=== PATIENT | female | born 1950 | race Caucasian/White ===

== ENCOUNTER 2016-12-30 08:08 | Emergency (ER) | payer MEDICARE, BC ==
[2016-12-30 08:32] VITALS: BP 140/93
--- NOTE | 2016-12-30 09:04 | EDM.PDOC ---
ED HPI GENERAL MEDICAL PROBLEM - General Chief Complaint: General Stated Complaint: DEHYDRATED? Time Seen by Provider: 12/30/16 08:50 Source of Information: Reports: Patient History Limitations: Reports: No limitations - History of Present Illness INITIAL COMMENTS - FREE TEXT/NARRATIVE: History of present illness: [66-year-old female is anxious about her upcoming hip surgery on January 15. she's having trouble sleeping having anxiety having diarrhea. She's had this problem before before surgeries. This time especially difficult because she lost her 3 years ago and he was a big support to her. She has had no fevers chills cough cold symptoms chest pain shortness of breath abdominal pain nausea or vomiting or dysuria] Review of systems: As per history of present illness and below otherwise all systems reviewed and negative. Past medical history: As per history of present illness and as reviewed below otherwise noncontributory. Surgical history: As per history of present illness and as reviewed below otherwise noncontributory. Social history: No reported history of drug or alcohol abuse. Family history: As per history of present illness and as reviewed below otherwise noncontributory. Physical exam: HEENT: Atraumatic, normocephalic, pupils reactive, negative for conjunctival pallor or scleral icterus, mucous membranes moist, throat clear, neck supple, nontender, trachea midline. Lungs: Clear to auscultation, breath sounds equal bilaterally Heart: S1S2, regular, negative for clicks, rubs, or JVD. Abdomen: Soft, nondistended, nontender. Extremities: Atraumatic, negative for cords or calf pain. Neurovascular unremarkable. Neuro: Awake, alert, oriented. Exam nonfocal. MSE: Alert but anxious with good eye contact well kept and well groomed pleasant and conversant Diagnostics: [] Therapeutics: [] Impression: [Situational anxiety] Plan: [Providing her with Klonopin 0.5 mg 1 by mouth twice a day when necessary anxiety or insomnia #20 with no refills] Definitive disposition and diagnosis as appropriate pending reevaluation and review of above. 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: Musculoskeletal History: Reports: Other (see below) Other Musculoskeletal History: pelvic fracture - Past Surgical History HEENT Surgical History: Reports: Tonsillectomy Cardiovascular Surgical History: Reports: Other (see below) Other Cardiovascular Surgeries/Procedures: open heart surgery for pulmonary stenosis GI Surgical History: Reports: Appendectomy, Cholecystectomy Female Surgical History: Reports: section, Hysterectomy, Oophorectomy Social & Family History - Tobacco Use Smoking Status *Q: Never Smoker Second Hand Smoke Exposure: No - Recreational Drug Use Recreational Drug Use: No ED ROS GENERAL - Review of Systems Review Of Systems: ROS reveals no pertinent complaints other than HPI. ED EXAM, GENERAL - Physical Exam Exam: See Below Course - Vital Signs Last Recorded V/S: Last Vital Signs Temp 36.7 C 12/30/16 08:31 Pulse 76 12/30/16 08:31 Resp 16 12/30/16 08:31 BP 140/93 H 12/30/16 08:31 Pulse Ox 99 12/30/16 08:31 Departure - Departure Time of Disposition: 09:03 Disposition: Home, Self-Care 01 Condition: good Clinical Impression: Situational anxiety Forms: ED Department Discharge Additional Instructions: You are not dehydrated this point it is unlikely that she will become dehydrated. If these medications are helping you please follow up with your doctor if you feel that you need more. Try to spend time with her friends visiting with them talking with them and I think that will help as well.
== END 2016-12-30 09:11 | disposition home or self-care (01) ==
LOC: JP.ED 08:08
DX: F41.8 Other specified anxiety disorders (principal); Z90.49 Acquired absence of other specified parts of digestive tract; Z90.710 Acquired absence of both cervix and uterus; Z90.721 Acquired absence of ovaries, unilateral; Z98.890 Other specified postprocedural states
CPT/HCPCS: 99283

== ENCOUNTER 2017-03-20 07:43 | Emergency (ER) | payer MEDICARE, BC ==
[2017-03-20 07:56] VITALS: BP 135/69
[2017-03-20] MEDS ORDERED: Acetaminophen 325 MG Tab PO ONE (08:15)
--- NOTE | 2017-03-20 08:21 | EDM.PDOC ---
ED HPI GENERAL MEDICAL PROBLEM - General Chief Complaint: Lower Extremity Injury/Pain Stated Complaint: LT LEG PAIN Time Seen by Provider: 03/20/17 08:10 Source of Information: Reports: Patient, RN History Limitations: Reports: No Limitations - History of Present Illness INITIAL COMMENTS - FREE TEXT/NARRATIVE: 66 yo female had a L knee replacement about 9 weeks ago. Developed left calf pain last speedy so comes in today to make sure there is no DVT. Has no respiratory complaints. Was prescribed Eliquis after surgery, but could not afford it. 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: Other (see below) (none) Left Leg Pain Score (Numeric/FACES): 5 - Related Data Allergies Allergy/AdvReac Type Severity Reaction Status Date / Time oxycodone Allergy Other Verified 03/20/17 08:05 Home Meds: Home Meds Acetaminophen/HYDROcodone [[place] 325-5 MG] 1 tab PO ASDIRECTED 03/20/17 [History ] Docusate Sodium [Colace] 1 tab PO ASDIRECTED 03/20/17 [History] Past Medical History Other Cardiovascular History: Pulmonarry stenosis Other Respiratory History: pulmonary stenosis: surgery to open it 1985 Gastrointestinal History: Reports: Cholelithiasis 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 Musculoskeletal Surgical History: Reports: Hip Replacement Social & Family History - Tobacco Use Smoking Status *Q: Never Smoker Second Hand Smoke Exposure: No - Recreational Drug Use Recreational Drug Use: No Review of Systems - Review of Systems Review Of Systems: See Below Constitutional: Reports: No Symptoms Eyes: Reports: No Symptoms Ears: Reports: No Symptoms Nose: Reports: No Symptoms Mouth/Throat: Reports: No Symptoms Respiratory: Reports: No Symptoms Cardiovascular: Reports: No Symptoms Musculoskeletal: Reports: Other (L calf pain) Skin: Reports: No Symptoms Neurological: Reports: No Symptoms ED EXAM, GENERAL - Physical Exam Exam: See Below Exam Limited By: No Limitations General Appearance: Alert, WD/WN, No Apparent Distress Respiratory/Chest: No Respiratory Distress, Lungs Clear, Normal Breath Sounds, No Accessory Muscle Use Cardiovascular: Regular Rate, Rhythm, No Edema Extremities: Normal Inspection, Normal Range of Motion, No Pedal Edema, Normal Capillary Refill, Other (L calf is mildly tender, no increase in warmth or redness or swelling. ) Neurological: Alert, Oriented, CN II-XII Intact, Normal Cognition, No Motor/ Sensory Deficits Psychiatric: Normal Affect, Normal Mood Skin Exam: Warm, Dry, Intact, Normal Color, No Rash Lymphatic: No Adenopathy Course - Vital Signs Text/Narrative:: acetaminophen 650 mg po Last Recorded V/S: Last Vital Signs Temp 35.9 C 03/20/17 08:04 Pulse 82 03/20/17 08:04 Resp 16 03/20/17 08:04 BP 135/69 03/20/17 08:04 Pulse Ox 95 03/20/17 08:04 - Orders/Labs/Meds Labs: Laboratory Tests 03/20/17 Range/Units 08:16 D-Dimer, Quantitative 220 (0.0-400.0) ng/mL Meds: Medications Discontinued Medications Generic Name Dose Route Start Last Admin Trade Name Macarioq PRN Reason Stop Dose Admin Acetaminophen 650 mg 03/20/17 08:15 Tylenol PO 03/20/17 08:16 NOW ONE Departure - Departure Time of Disposition: 09:07 Disposition: Home, Self-Care 01 Condition: good Clinical Impression: Strain of calf muscle Qualifiers: Encounter type: initial encounter Laterality: left Qualified Code(s): S86.812A - Strain of other muscle(s) and tendon(s) at lower leg level, left leg, initial encounter - Discharge Information Forms: ED Department Discharge
== END 2017-03-20 09:14 | disposition home or self-care (01) ==
LOC: JP.ED 07:43
DX: S86.812A Strain of other muscle(s) and tendon(s) at lower leg level, left leg, initial encounter (principal); Z88.5 Allergy status to narcotic agent; Z98.890 Other specified postprocedural states; Z90.49 Acquired absence of other specified parts of digestive tract; Z90.710 Acquired absence of both cervix and uterus; Z96.652 Presence of left artificial knee joint; X58.XXXA Exposure to other specified factors, initial encounter
CPT/HCPCS: 36415; 85379; 99284; A9270; 99282

== ENCOUNTER 2017-10-30 07:37 | Emergency (ER) | payer MEDICARE, BC ==
[2017-10-30 07:55] VITALS: BP 134/66
[2017-10-30] MEDS ORDERED: Ketorolac 60 MG/2 ML SDV IM ONE (08:23)
--- NOTE | 2017-10-30 08:25 | EDM.PDOC ---
ED HPI GENERAL MEDICAL PROBLEM - General Chief Complaint: General Stated Complaint: HURT LT SIDE/RIBS Time Seen by Provider: 10/30/17 08:20 Source of Information: Reports: Patient, RN Notes Reviewed History Limitations: Reports: No Limitations - History of Present Illness INITIAL COMMENTS - FREE TEXT/NARRATIVE: 67-year-old female presents emergency department today with left chest wall pain , she states she injured herself when she was bending over into deep freeze her to pop on the left side all of a sudden sudden onset of pain hurts to take a deep breath does have a history of rib fracture on that side Left Chest Pain Score (Numeric/FACES): 7 - Related Data Allergies Allergy/AdvReac Type Severity Reaction Status Date / Time oxycodone Allergy Other Verified 10/30/17 07:57 Home Meds: Home Meds NK [No Known Home Meds] 10/30/17 [History] Past Medical History Other Cardiovascular History: Pulmonarry stenosis Other Respiratory History: pulmonary stenosis: surgery to open it 1985 Gastrointestinal History: Reports: Cholelithiasis 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 Musculoskeletal Surgical History: Reports: Hip Replacement Social & Family History - Tobacco Use Smoking Status *Q: Never Smoker Second Hand Smoke Exposure: No - Recreational Drug Use Recreational Drug Use: No ED ROS GENERAL - Review of Systems Review Of Systems: See Below Constitutional: Reports: No Symptoms HEENT: Reports: No Symptoms Respiratory: Reports: Shortness of Breath. Denies: Cough, Sputum Cardiovascular: Reports: Chest Pain. Denies: Dyspnea on Exertion GI/Abdominal: Reports: No Symptoms : Reports: No Symptoms ED EXAM, GENERAL - Physical Exam Exam: See Below Exam Limited By: No Limitations General Appearance: Alert, WD/WN, No Apparent Distress Throat/Mouth: No Airway Compromise Neck: Normal Inspection, Supple, Non-Tender, Full Range of Motion Respiratory/Chest: No Respiratory Distress, Lungs Clear, Normal Breath Sounds, No Accessory Muscle Use, Other (Tender to palpation along the left side of the chest) Cardiovascular: Regular Rate, Rhythm, No Murmur Course - Vital Signs Last Recorded V/S: Last Vital Signs Temp 96.6 F 10/30/17 07:56 Pulse 65 10/30/17 07:56 Resp 16 10/30/17 07:56 BP 134/66 10/30/17 07:56 Pulse Ox 93 L 10/30/17 07:56 - Orders/Labs/Meds Meds: Medications Discontinued Medications Generic Name Dose Route Start Last Admin Trade Name Torsten PRN Reason Stop Dose Admin Ketorolac Tromethamine 60 mg 10/30/17 08:23 10/30/17 08:33 Toradol IM 10/30/17 08:24 60 mg ONETIME ONE Administration Departure - Departure Time of Disposition: 09:16 Disposition: Home, Self-Care 01 Condition: Good Clinical Impression: Chest wall pain - Discharge Information Referrals: Matthew Vegas Sr, MD [Primary Care Provider] - Forms: ED Department Discharge Additional Instructions: Use ibuprofen for baseline pain control, use hydrocodone for breakthrough pain, Please followup with your primary care provider in 5-7 days if not better, please call return to the emergency department with worsening of symptoms. - Assessment/Plan Plan: Assessment Acuity = acute Site and laterality = left-sided chest wall pain complicated in a patient with known history of median sternotomy Etiology = secondary to bending over Manifestations = none Location of injury = Home Lab values = chest x-ray shows no acute process Plan She did receive good relief from the Toradol injection, plan to discharge home with ibuprofen for baseline pain control and hydrocodone 5/325 one tablet by mouth 3 times a day when necessary total #10 she'll follow-up with her primary care in 5-7 days if no improvement This note was dictated using [employer] voice recognition software please call with any questions on syntax or anai.
--- NOTE | 2017-10-30 08:51 | CR ---
Chest 2V HISTORY: left chest wall pain COMPARISON: None FINDINGS: Lungs appear clear and normally aerated. Cardiomediastinal silhouette is within normal limits. Old me debi sternotomy changes are noted. There is mild atherosclerotic calcification in the aortic arch. No vascular redistribution or pleural fluid can be seen. Bony structures and soft tissues are unremarka ble. IMPRESSION: Old median sternotomy changes. No acute cardiopulmonary disease is identified.
== END 2017-10-30 09:42 | disposition home or self-care (01) ==
LOC: JP.ED 07:37
DX: R07.89 Other chest pain (principal); Z98.890 Other specified postprocedural states; Z88.6 Allergy status to analgesic agent; X50.1XXA Overexertion from prolonged static or awkward postures, initial encounter
CPT/HCPCS: 71046; 96372; 99284; J1885; 99283

== ENCOUNTER 2019-01-04 08:39 | Emergency (ER) | payer MEDICARE, BC ==
[2019-01-04 08:54] VITALS: BP 127/77
--- NOTE | 2019-01-04 09:26 | EDM.PDOC ---
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 - Related Data Allergies Allergy/AdvReac Type Severity Reaction Status Date / Time oxycodone Allergy Other Verified 01/04/19 08:55 Home Meds: Home Meds Alendronate Sodium 1 tab PO WEEKLY 01/04/19 [History] Calcium Carb/Vitamin D3/Vit K1 [Viactiv Soft Chew Tablet] 2 tab PO DAILY [History] Hydrocortisone [Hydrocortisone 2.5% Crm] 30 gm .XX ASDIRECTED #1 tube 01/04/19 [ Rx] Multivitamin [Multivitamins] 1 tab PO DAILY 01/04/19 [History] predniSONE 40 mg PO DAILY #6 tab 01/04/19 [Rx] predniSONE [Prednisone] 40 mg PO DAILY 3 Days tablet 01/04/19 [Rx] Past Medical History Other Cardiovascular History: Pulmonarry stenosis Other Respiratory History: pulmonary stenosis: surgery to open it 1985 Gastrointestinal History: Reports: Cholelithiasis 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 Musculoskeletal Surgical History: Reports: Hip Replacement Social & Family History - Tobacco Use Smoking Status *Q: Never Smoker - Alcohol Use Days Per Week of Alcohol Use: 7 Number of Drinks Per Day: 1 Total Drinks Per Week: 7 - Recreational Drug Use Recreational Drug Use: No ED ROS GENERAL - Review of Systems Review Of Systems: ROS reveals no pertinent complaints other than HPI. Constitutional: Reports: No Symptoms Musculoskeletal: Reports: Arm Pain (left arm swelling ) Skin: Reports: No Symptoms Neurological: Reports: No Symptoms Psychiatric: Reports: No Symptoms Hematologic/Lymphatic: Reports: No Symptoms Immunologic: Reports: No Symptoms ED EXAM, SKIN/RASH Exam: See Below Exam Limited By: No Limitations General Appearance: Alert, WD/WN, No Apparent Distress Peripheral Pulses: 2+: Radial (L), Radial (R) Back Exam: Full Range of Motion Extremities: Normal Inspection, Normal Capillary Refill, Arm Pain (left upper arm erythema and swelling, 8 x 10 area, warm to the touch) Course - Vital Signs Last Recorded V/S: Last Vital Signs Temp 36.2 C 01/04/19 08:54 Pulse 90 01/04/19 08:54 Resp 14 01/04/19 08:54 BP 127/77 01/04/19 08:54 Pulse Ox 96 01/04/19 08:54 Departure - Departure Disposition: Home, Self-Care 01 Clinical Impression: Drug reaction Qualifiers: Encounter type: initial encounter Qualified Code(s): T50.905A - Adverse effect of unspecified drugs, medicaments and biological substances, initial encounter - Discharge Information Prescriptions: Hydrocortisone [Hydrocortisone 2.5% Crm] 30 gm .XX ASDIRECTED #1 tube predniSONE 40 mg PO DAILY #6 tab predniSONE [Prednisone] 40 mg PO DAILY 3 Days tablet Instructions: Drug Allergy, [id number] Referrals: Ronald Klein MD [Primary Care Provider] - Forms: ED Department Discharge Additional Instructions: Please take benadryl and use hydrocortisone cream on the area for itching. If the area continues to get worse throughout the day today please fill the script for prednisone. Return to the ER for new symptoms such as shortness of breath or abdominal pain as these may indicate a worsening allergic reaction <Osvaldo Urias - Last Filed: 01/05/19 07:44> Course - Re-Assessments/Exams Free Text/Narrative Re-Assessment/Exam: 68 yo presents with localized reaction after pneumonia immunization No systemic symptoms Prescribed local hydrocortisone cream and benadryl Provided script for short course of PO prednisone should her symptoms fail to improve by this evening Will f/u with PCP Remainder per above note by student LIZA Phillips which reflects my exam 01/05/19 07:42 Departure - Departure Time of Disposition: 10:13 - Discharge Information *PRESCRIPTION DRUG MONITORING PROGRAM REVIEWED*: No *COPY OF PRESCRIPTION DRUG MONITORING REPORT IN PATIENT HUGO: No
== END 2019-01-04 10:52 | disposition home or self-care (01) ==
LOC: JP.ED 08:39
DX: R22.9 Localized swelling, mass and lump, unspecified (principal); T50.Z95A Adverse effect of other vaccines and biological substances, initial encounter; Z79.899 Other long term (current) drug therapy; Z88.6 Allergy status to analgesic agent
CPT/HCPCS: 99282

== ENCOUNTER 2019-06-07 20:52 | Emergency (ER) | payer MEDICARE, BC ==
[2019-06-07 21:06] VITALS: BP 124/65
--- NOTE | 2019-06-07 21:26 | EDM.PDOC ---
ED HPI GENERAL MEDICAL PROBLEM - General Chief Complaint: Abdominal Pain Stated Complaint: ADM PAIN Time Seen by Provider: 06/07/19 21:15 Source of Information: Reports: Patient, Old Records, RN History Limitations: Reports: No Limitations - History of Present Illness INITIAL COMMENTS - FREE TEXT/NARRATIVE: 68 yo female presents with intermittent severe crampy abdominal pain. Had nausea with the pain, but did not vomit. No fever. Has had several surgeries in the past. No blood in stools. Onset: Today Onset Date: 06/07/19 Duration: Hour(s):, Waxing/Waning Location: Reports: Abdomen Quality: Reports: Sharp Severity: Severe Improves with: Reports: None Worsens with: Reports: None Context: Reports: Other (see HPI) Associated Symptoms: Reports: Nausea/Vomiting (no vomiting). Denies: Fever/ Chills Treatments SPECIAL SERVICES COORDINATOR: Reports: Other (see below) (none) periumbilical pain Pain Score (Numeric/FACES): 10 - Related Data Allergies Allergy/AdvReac Type Severity Reaction Status Date / Time oxycodone Allergy Other Verified 06/07/19 20:58 Home Meds: Home Meds Alendronate Sodium 1 tab PO WEEKLY 01/04/19 [History] Calcium Carb/Vitamin D3/Vit K1 [Viactiv Soft Chew Tablet] 2 tab PO DAILY [History] Multivitamin [Multivitamins] 1 tab PO DAILY 01/04/19 [History] Past Medical History Cardiovascular History: Reports: Heart Murmur Other Cardiovascular History: Pulmonary stenosis Other Respiratory History: pulmonary stenosis: surgery to open it 1985 Gastrointestinal History: Reports: Cholelithiasis 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 Musculoskeletal Surgical History: Reports: Hip Replacement Social & Family History - Tobacco Use Smoking Status *Q: Never Smoker - Caffeine Use Caffeine Use: Reports: Soda - Recreational Drug Use Recreational Drug Use: No ED ROS GENERAL - Review of Systems Review Of Systems: See Below Constitutional: Reports: No Symptoms HEENT: Reports: No Symptoms Respiratory: Reports: No Symptoms Cardiovascular: Reports: No Symptoms Endocrine: Reports: No Symptoms GI/Abdominal: Reports: Abdominal Pain, Diarrhea (past a small amt of liquid stool today.), Nausea. Denies: Black Stool, Bloody Stool, Constipation, Distension, Flatus, Hematemesis, Melena, Vomiting : Reports: No Symptoms Musculoskeletal: Reports: No Symptoms Skin: Reports: No Symptoms Neurological: Reports: No Symptoms Psychiatric: Reports: No Symptoms ED EXAM, GI/ABD - Physical Exam Exam: See Below Exam Limited By: No Limitations General Appearance: Alert, WD/WN, No Apparent Distress Eyes: Bilateral: Normal Appearance Ears: Normal External Exam, Normal Canal, Hearing Grossly Normal Nose: Normal Inspection, No Blood Throat/Mouth: Normal Inspection, Normal Lips, Normal Oropharynx, Normal Voice, No Airway Compromise. No: Normal Teeth (no upper or maxillary teeth present) Head: Atraumatic, Normocephalic Neck: Normal Inspection Respiratory/Chest: No Respiratory Distress, Lungs Clear, Normal Breath Sounds, No Accessory Muscle Use Cardiovascular: Regular Rate, Rhythm, No Edema GI/Abdominal Exam: Normal Bowel Sounds, No Distention, Guarding, Tender ( especially lower half of abdomen.). No: Non-Tender, Distended Back Exam: Normal Inspection. No: CVA Tenderness (R), CVA Tenderness (L) Extremities: Normal Inspection, Normal Range of Motion, Non-Tender, No Pedal Edema Neurological: Alert, Oriented, CN II-XII Intact, Normal Cognition, No Motor/ Sensory Deficits Psychiatric: Normal Affect, Normal Mood Skin Exam: Warm, Dry, Intact, Normal Color, No Rash Course - Vital Signs Text/Narrative:: Symptoms all passed while in the ER. OK with going home. Tolerated 2 cups of apple juice. Last Recorded V/S: Last Vital Signs Temp 35.8 C 06/07/19 20:56 Pulse 78 06/07/19 21:06 Resp 15 06/07/19 21:06 BP 124/65 06/07/19 21:06 Pulse Ox 97 06/07/19 21:06 - Orders/Labs/Meds Orders: Active Orders 24 hr Category Date Time Status Lactated Ringers [Ringers, Lactated] 1,000 ml Med 06/07/19 22:00 Active IV ASDIRECTED Medication Orders Lactated Ringer's (Ringers, Lactated) 1,000 mls @ 125 mls/hr IV ASDIRECTED MIKAELA Last Admin: 06/07/19 22:01 Dose: 125 mls/hr Labs: Laboratory Tests 06/07/19 06/07/19 06/07/19 Range/Units 22:01 22:01 22:19 WBC 9.8 (4.5-11.0) K/uL RBC 5.18 (3.30-5.50) M/uL Hgb 15.1 H (12.0-15.0) g/dL Hct 46.1 (36.0-48.0) % MCV 89 (80-98) fL MCH 29 (27-31) pg MCHC 33 (32-36) % Plt Count 264 (150-400) K/uL Sodium 140 (140-148) mmol/L Potassium 4.3 (3.6-5.2) mmol/L Chloride 104 (100-108) mmol/L Carbon Dioxide 30 (21-32) mmol/L Anion Gap 6.4 (5.0-14.0) mmol/L BUN 20 H (7-18) mg/dL Creatinine 1.1 H (0.6-1.0) mg/dL Est Cr Clr Drug Dosing 34.67 mL/min Estimated GFR (MDRD) 49 L (>60) Glucose 107 H (74-106) mg/dL Calcium 9.5 (8.5-10.1) mg/dL C-Reactive Protein 0.00 (0.0-0.3) mg/dL Urine Color (YELLOW) Urine Appearance (CLEAR) Urine pH (5.0-8.0) Ur Specific [place] (1.008-1.030) Urine Protein (NEGATIVE) mg/dL Urine Glucose (UA) (NEGATIVE) mg/dL Urine Ketones (NEGATIVE) mg/dL Urine Occult Blood (NEGATIVE) Urine Nitrite (NEGATIVE) Urine Bilirubin (NEGATIVE) Urine Urobilinogen (0.2-1.0) EU/dL Ur Leukocyte Esterase (NEGATIVE) Urine RBC (0-5) Urine WBC (0-5) Ur Epithelial Cells Amorphous Sediment Urine Bacteria Urine Mucus 06/07/19 Range/Units 23:30 WBC (4.5-11.0) K/uL RBC (3.30-5.50) M/uL Hgb (12.0-15.0) g/dL Hct (36.0-48.0) % MCV (80-98) fL MCH (27-31) pg MCHC (32-36) % Plt Count (150-400) K/uL Sodium (140-148) mmol/L Potassium (3.6-5.2) mmol/L Chloride (100-108) mmol/L Carbon Dioxide (21-32) mmol/L Anion Gap (5.0-14.0) mmol/L BUN (7-18) mg/dL Creatinine (0.6-1.0) mg/dL Est Cr Clr Drug Dosing mL/min Estimated GFR (MDRD) (>60) Glucose (74-106) mg/dL Calcium (8.5-10.1) mg/dL C-Reactive Protein (0.0-0.3) mg/dL Urine Color Yellow (YELLOW) Urine Appearance Clear (CLEAR) Urine pH 5.5 (5.0-8.0) Ur Specific [place] 1.015 (1.008-1.030) Urine Protein Negative (NEGATIVE) mg/dL Urine Glucose (UA) Normal (NEGATIVE) mg/dL Urine Ketones Negative (NEGATIVE) mg/dL Urine Occult Blood Negative (NEGATIVE) Urine Nitrite Negative (NEGATIVE) Urine Bilirubin Negative (NEGATIVE) Urine Urobilinogen Normal (0.2-1.0) EU/dL Ur Leukocyte Esterase Negative (NEGATIVE) Urine RBC 0-5 (0-5) Urine WBC 0-5 (0-5) Ur Epithelial Cells Not seen Amorphous Sediment Not seen Urine Bacteria Rare Urine Mucus Not seen Meds: Medications Generic Name Dose Route Start Last Admin Trade Name Freq PRN Reason Stop Dose Admin Lactated Ringer's 1,000 mls @ 125 mls/hr 06/07/19 22:00 06/07/19 22:01 Ringers, Lactated IV 125 mls/hr ASDIRECTED MIKAELA Administration Discontinued Medications Generic Name Dose Route Start Last Admin Trade Name Freq PRN Reason Stop Dose Admin Dicyclomine HCl 20 mg 06/07/19 22:20 06/07/19 22:33 Bentyl PO 06/07/19 22:21 20 mg ONETIME ONE Administration Hydromorphone HCl 0.5 mg 06/07/19 21:48 06/07/19 22:01 Dilaudid IVPUSH 06/07/19 21:49 0.5 mg ONETIME ONE Administration - Radiology Interpretation Free Text/Narrative:: KUB X-ray-neg Departure - Departure Time of Disposition: 00:33 Disposition: Home, Self-Care 01 Condition: Good Clinical Impression: Abdominal pain Qualifiers: Abdominal location: generalized Qualified Code(s): R10.84 - Generalized abdominal pain - Discharge Information *PRESCRIPTION DRUG MONITORING PROGRAM REVIEWED*: No *COPY OF PRESCRIPTION DRUG MONITORING REPORT IN PATIENT HUGO: No Referrals: PCP,None [Primary Care Provider] - Forms: ED Department Discharge Additional Instructions: Clear liquids only tonight. Advance diet tomorrow as tolerated. F/U with your doctor. Return as needed. - My Orders Last 24 Hours: My Active Orders 06/07/19 22:00 Lactated Ringers [Ringers, Lactated] 1,000 ml IV ASDIRECTED - Assessment/Plan Last 24 Hours: My Active Orders 06/07/19 22:00 Lactated Ringers [Ringers, Lactated] 1,000 ml IV ASDIRECTED
[2019-06-07] MEDS ORDERED: HYDROmorphone 0.5 MG/0.5 ML Syringe IVPUSH ONE (21:48)
[2019-06-07] MEDS ORDERED: Lactated Ringers 1,000 ML IV SCH (22:00)
--- NOTE | 2019-06-07 22:17 | CRLCR ---
INDICATION: Intermittent severe abdomen pain TECHNIQUE: Abdominal radiograph 2 views COMPARISON: None FINDINGS: Bowel: The bowel gas pattern is normal without evidence of bowel obstruction. Several calcified phleboliths present in the left hemipelvis. Soft tissue: No evidence of pneumoperitoneum present. Bone: A left bipolar hip prosthesis is partially visualized. Severe diffuse osteopenia seen. IMPRESSION: 1. Unremarkable appearance of the visualized abdomen. Dictated by Dread Colon MD @ 06/07/2019 10:15:43 PM Dictated by: Dread Colon MD @ 06/07/2019 22:15:49 (Electronically Signed)
[2019-06-07] MEDS ORDERED: Dicyclomine 10 MG Cap PO ONE (22:20)
== END 2019-06-08 00:54 | disposition home or self-care (01) ==
LOC: JP.ED 20:52
DX: R10.84 Generalized abdominal pain (principal); R10.33 Periumbilical pain; Z90.49 Acquired absence of other specified parts of digestive tract; Z98.890 Other specified postprocedural states; Z88.6 Allergy status to analgesic agent
CPT/HCPCS: 36415; 74018; 80048; 81001; 85027; 86140; 96361; 96374; 99284; A9270; J1170; J7120

== ENCOUNTER 2020-07-05 17:05 | Inpatient (IN) | payer MEDICARE, BC ==
[2020-07-05] MEDS ORDERED: Sodium Chloride 0.9% 10 ML Syringe FLUSH PRN (17:18)
[2020-07-05] MEDS ORDERED: HYDROmorphone 0.5 MG/0.5 ML Syringe IVPUSH ONE ×2 (17:19→19:30)
[2020-07-05] MEDS ORDERED: Metoclopramide 10 MG/2 ML SDV IVPUSH ONE (17:19)
--- NOTE | 2020-07-05 17:26 | EDM.PDOC ---
ED HPI GENERAL MEDICAL PROBLEM - General Chief Complaint: Lower Extremity Injury/Pain Stated Complaint: MEDICAL VIA NORTH Time Seen by Provider: 07/05/20 17:19 Source of Information: Reports: Patient - History of Present Illness INITIAL COMMENTS - FREE TEXT/NARRATIVE: Julianne is a 69 year old female whom presents to ER for acute right hip pain which started abruptly this am. Julianne had a right hip replacement surgery last week and has been doing fairly well. Julianne has been following her therapy plan to a T and very frustrated that she woke up with pain this am. Julianne report hip was fine when going to sleep last night. Julianne called her Orthopedic surgeon whom recommended ER evaluation due to known osteoporosis. Julianne has noticed swelling in her right leg which is better with activity but more swelling today. Julianne is prescribed Fombell for pain took one tablet 1 hr which did not help with pain. Julianne denies shortness of breath, headache, chest pain, cough, fever or URI symptoms concerning for COVID, PE or MA. 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: Musculoskeletal History: Reports: Fracture, Osteoporosis Other Musculoskeletal History: pelvic fracture - Infectious Disease History Infectious Disease History: Reports: Chicken Pox - Past Surgical History HEENT Surgical History: Reports: Tonsillectomy Cardiovascular Surgical History: Reports: Other (See Below) Other Cardiovascular Surgeries/Procedures: pulmonary stenosis surgery GI Surgical History: Reports: Appendectomy, Cholecystectomy Female Surgical History: Reports: Section, Hysterectomy, Oophorectomy, Other (See Below) Other Female Surgeries/Procedures: large cyst removal from ovary 1968. Musculoskeletal Surgical History: Reports: Hip Replacement Social & Family History - Tobacco Use Smoking Status *Q: Never Smoker - Caffeine Use Caffeine Use: Reports: Soda - Recreational Drug Use Recreational Drug Use: No Review of Systems - Review of Systems Review Of Systems: Comprehensive ROS is negative, except as noted in HPI. ED EXAM, GENERAL - Physical Exam Exam: See Below Exam Limited By: No Limitations General Appearance: Alert, WD/WN, Moderate Distress (with movement of right leg. ) Eye Exam: Bilateral Eye: EOMI, Normal Inspection Ears: Normal External Exam, Hearing Grossly Normal Nose: Normal Inspection Throat/Mouth: Normal Inspection, Normal Voice, No Airway Compromise Neck: Normal Inspection, Supple, Non-Tender Respiratory/Chest: No Respiratory Distress, Lungs Clear, Normal Breath Sounds Cardiovascular: Normal Peripheral Pulses, Regular Rate, Rhythm GI/Abdominal: Normal Bowel Sounds, Soft Extremities: Pedal Edema, Leg Pain (upper thigh to palpation. Incision dressing intact right lateral hip. No erythema or swelling noted. Julianne is unable to elevated and move leg like she was able to yesterday. ) Neurological: Alert, Oriented, CN II-XII Intact, Normal Cognition, Normal Gait, No Motor/Sensory Deficits Psychiatric: Normal Affect, Normal Mood Skin Exam: Warm, Dry, Intact, Normal Color, No Rash Course - Vital Signs Last Recorded V/S: Last Vital Signs Temp Pulse 95 07/05/20 19:36 Resp 16 07/05/20 19:36 BP 138/65 07/05/20 19:36 Pulse Ox 94 L 07/05/20 19:36 - Orders/Labs/Meds Orders: Active Orders 24 hr Category Date Time Status Insert Velasquez Catheter [Insert Urinary Catheter] [OM.PC] Care 07/05/20 20:00 Ordered Q24H Peripheral IV Care [RC] . DIRECTED Care 07/05/20 17:18 Active Urinary Catheter Assessment [RC] ASDIRECTED Care 07/05/20 19:57 Active Hip Min 2V or 3V w Pelvis Rt [CR] Stat Exams 07/05/20 17:17 Taken VL Duplex Lwr Ext Veins Ltd Rt [US] Stat Exams 07/05/20 17:26 Taken Sodium Chloride 0.9% [Saline Flush] Med 07/05/20 17:18 Active 10 ml FLUSH ASDIRECTED PRN Peripheral IV Insertion Adult [OM.PC] Urgent Oth 07/05/20 17:18 Ordered Medication Orders Sodium Chloride (Saline Flush) 10 ml FLUSH ASDIRECTED PRN PRN Reason: Keep Vein Open Last Admin: 07/05/20 17:51 Dose: 10 ml Documented by: CARIE Labs: Laboratory Tests 07/05/20 07/05/20 Range/Units 17:18 17:18 WBC 6.7 (4.5-11.0) K/uL RBC 4.08 (3.30-5.50) M/uL Hgb 11.5 L D (12.0-15.0) g/dL Hct 36.4 (36.0-48.0) % MCV 89 (80-98) fL MCH 28 (27-31) pg MCHC 32 (32-36) % Plt Count 254 (150-400) K/uL Neut % (Auto) 65 (36-66) % Lymph % (Auto) 19 L (24-44) % Ashley % (Auto) 14 H (2-6) % Eos % (Auto) 2 (2-4) % Baso % (Auto) 0 (0-1) % Sodium 140 (140-148) mmol/L Potassium 3.7 (3.6-5.2) mmol/L Chloride 103 (100-108) mmol/L Carbon Dioxide 26 (21-32) mmol/L Anion Gap 10.7 (5.0-14.0) mmol/L BUN 12 (7-18) mg/dL Creatinine 0.9 (0.6-1.0) mg/dL Est Cr Clr Drug Dosing 41.78 mL/min Estimated GFR (MDRD) > 60 (>60) Glucose 92 (74-106) mg/dL Calcium 9.2 (8.5-10.1) mg/dL C-Reactive Protein 4.12 H (0.0-0.3) mg/dL Meds: Medications Generic Name Dose Route Start Last Admin Trade Name Freq PRN Reason Stop Dose Admin Sodium Chloride 10 ml 07/05/20 17:18 07/05/20 17:51 Saline Flush FLUSH 10 ml ASDIRECTED PRN Administration Keep Vein Open Discontinued Medications Generic Name Dose Route Start Last Admin Trade Name Freq PRN Reason Stop Dose Admin Hydrocodone Bitart/Acetaminophen 1 tab 07/05/20 18:46 07/05/20 18:56 Fombell 325-10 Mg PO 07/05/20 18:47 1 tab ONETIME ONE Administration Hydromorphone HCl 0.5 mg 07/05/20 17:19 07/05/20 17:51 Dilaudid IVPUSH 07/05/20 17:20 0.5 mg ONETIME ONE Administration Hydromorphone HCl 0.5 mg 07/05/20 19:30 07/05/20 19:40 Dilaudid IVPUSH 07/05/20 19:31 0.5 mg ONETIME ONE Administration Hydroxyzine HCl 25 mg 07/05/20 18:47 07/05/20 18:56 Atarax PO 07/05/20 18:48 25 mg ONETIME ONE Administration Methocarbamol 500 mg 07/05/20 18:46 07/05/20 18:56 Robaxin PO 07/05/20 18:47 500 mg ONETIME ONE Administration Metoclopramide HCl 5 mg 07/05/20 17:19 07/05/20 17:50 Reglan IVPUSH 07/05/20 17:20 5 mg ONETIME ONE Administration - Re-Assessments/Exams Free Text/Narrative Re-Assessment/Exam: Reassessment: No improvement with pain after given Dilaudid 0.5mg. Discussed X- ray appears normal and US no signs of DVT noted. Acute pain is likely due to hematoma in the surgical area. Pre-operative Hgb was 15.5 and today 11. Julianne will be given Fombell 325/10mg, Robaxin 500mg (methocarbamol) and Vistaril 25mg to control pain. If unable to get pain managed will need to discuss admission for pain control either here or transfer to [facility] Ortho group. 07/05/20 18:55 Reassessment: No improvement of pain. Repeat VS obtained before re-dosing of Dilaudid. Discuss discharge planning with patient. She lives home alone and not comfortable going home tonight. Contacted electronics utility worker [facility] Orthopedist about admission for pain management after talking with [facility] Hospitalist. scallop raker Orthopedist would prefer transfer to [facility], Orthopedic service due to post operative complication concerns. Surgeon: Osvaldo Monzon 07/05/20 19:33 19:44-19:51pm: On Hold requested consult with Orthopedic service. scallop raker Surgeon Dr. Knight, in OR at this time. Spoke to Dr Gonzales regarding unable to transfer patient to [facility] due to bed capacity unless (Stroke or Trauma). Dr Gonzales updated about Dr Knight Surgeon electronics utility worker but unable to get operative report due to currently in OR. Admit orders will be completed by Dr Gonzales for [facility] with evaluation in am. Pain is a bit improved with second dose of Dilaudid but unable to urinate (which is a known side effect of Oxycodone for patient). Velasquez catheter order for placement due to inability to void and pain with urinary retention. 07/05/20 19:57 Velasquez catheter placed due to urinary retention, Julianne reports pain in management after second dose of Dilaudid. She would like something to eat. She is grateful to stay in the hospital tonight to get pain managed due to friends unable to help her at home. 07/05/20 20:13 Departure - Departure Time of Disposition: 20:14 Disposition: Admitted As Inpatient 65 Clinical Impression: Right hip pain, Status post hip replacement - Discharge Information Referrals: PCP,None [Primary Care Provider] - Forms: ED Department Discharge Sepsis Event Note (ED) - Evaluation Sepsis Screening Result: No Definite Risk - Focused Exam Vital Signs: Vital Signs Pulse Resp BP Pulse Ox 07/05/20 19:36 95 16 138/65 94 L 07/05/20 17:13 91 16 147/83 H 96 - My Orders Last 24 Hours: My Active Orders 07/05/20 17:17 Hip Min 2V or 3V w Pelvis Rt [CR] Stat 07/05/20 17:18 Peripheral IV Care [RC] . DIRECTED Sodium Chloride 0.9% [Saline Flush] 10 ml FLUSH ASDIRECTED PRN Peripheral IV Insertion Adult [OM.PC] Urgent 07/05/20 17:26 VL Duplex Lwr Ext Veins Ltd Rt [US] Stat 07/05/20 19:57 Urinary Catheter Assessment [RC] ASDIRECTED 07/05/20 20:00 Insert Velasquez Catheter [Insert Urinary Catheter] [OM.PC] Q24H - Assessment/Plan Last 24 Hours: My Active Orders 07/05/20 17:17 Hip Min 2V or 3V w Pelvis Rt [CR] Stat 07/05/20 17:18 Peripheral IV Care [RC] . DIRECTED Sodium Chloride 0.9% [Saline Flush] 10 ml FLUSH ASDIRECTED PRN Peripheral IV Insertion Adult [OM.PC] Urgent 07/05/20 17:26 VL Duplex Lwr Ext Veins Ltd Rt [US] Stat 07/05/20 19:57 Urinary Catheter Assessment [RC] ASDIRECTED 07/05/20 20:00 Insert Velasquez Catheter [Insert Urinary Catheter] [OM.PC] Q24H
[2020-07-05] MEDS ORDERED: Methocarbamol 500 MG Tab PO ONE (18:46)
[2020-07-05] MEDS ORDERED: Acetaminophen/HYDROcodone 325-10 MG Tab PO ONE (18:46)
[2020-07-05] MEDS ORDERED: hydrOXYzine HCl 25 MG Tab PO ONE (18:47)
[2020-07-05] MEDS ORDERED: Magnesium Hydroxide 400 MG/5 ML Susp 30 ML Cup PO PRN (20:11)
[2020-07-05] MEDS ORDERED: Sodium Chloride 0.9% 1,000 ML IV SCH (20:15)
[2020-07-05] MEDS ORDERED: oxyCODONE 5 MG Tab PO PRN (20:21)
[2020-07-05] MEDS: HYDROmorphone 0.5 MG/0.5 ML Syringe IVPUSH PRN (22:46)
[2020-07-06] MEDS: HYDROmorphone 0.5 MG/0.5 ML Syringe IVPUSH PRN ×6 (02:50→18:30)
[2020-07-06] MEDS ORDERED: Docusate Sodium 100 MG Cap PO SCH (09:00)
--- NOTE | 2020-07-06 09:16 | US ---
VL Duplex Lwr Ext Veins Ltd Rt INDICATION: swelling and pain right leg S/P hip surg FINDINGS: Ultrasound examination of the lower extremity using Doppler and compressive technique demonstrates that the common femoral, femoral, and popliteal veins are patent, and negative for thrombus. The calf veins were segmentally visualized and are negative where seen. IMPRESSION: Negative for right lower extremity deep venous thrombosis.
--- NOTE | 2020-07-06 09:19 | CR ---
Hip Min 2V or 3V w Pelvis Rt CLINICAL HISTORY: Hip replacement FINDINGS: Patient is status post bilateral total hip arthroplasties. There are anahi over the right hip region. There is a fixation wire in the trochanteric region. Components appear well seated IMPRESSION: No right hip arthroplasty appears intact Previous left hip arthroplasty
--- NOTE | 2020-07-06 12:06 | PCM.DCSUM1 ---
Discharge Summary - Hospital Course Free Text/Narrative:: 69 year old white female with history of right total hip arthroplasty at [facility] a little over a week ago. Was discharged to home and was doing well until yesterday morning. Awoke with severe pain yesterday morning. No new trauma or fall. Has significant difficulty with weight bearing that did not get better throughout the day. Presented to the ED with inability to weight bear. admitted through the ED for pain control. 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 SNOMED Code(s): 865351267 ICD Code: M97.8XXA - PERIPROSTH FRACTURE AROUND OTHER INTERNAL PROSTH JOINT, INIT; Z96.649 - PRESENCE OF UNSPECIFIED ARTIFICIAL HIP JOINT Status: Acute Current Visit: Yes Qualifiers: Encounter type: initial encounter Laterality: right Qualified Code(s): M97.01XA - Periprosthetic fracture around internal prosthetic right hip joint, initial encounter; T84.040A - Periprosthetic fracture around internal prosthetic right hip joint, initial encounter - Patient Summary/Data Consults: Consultations 07/05/20 20:12 Consult to Case Management/Hand [employer]er [employer]oes [CONS] Routine Comment: Physician Instructions: Discharge placement post hip surgery Service(s) to be Consulted: Case Management PT Evaluation and Treatment [CONS] Routine Please Evaluate and Treat. PT Reason for Consult: Post op Ortho Surgery Hip Pending Discharge: Yes, 2- -3 days Special Instructions: Schedule first outpatient P.T. appointment 3 - 5 days post discharge This query below is only for informational purposes and is not editable. Hospital Course: Very pleasant 69 year old female evaluated for hip pain S/P right total hip arthroplasty. Pain with attempted weight bearing and ROM of right hip. X-rays show total hip in place with cable around proximal periprosthetic fracture and mild subsidence. She was admitted for pain control and discussed her condition with Dr. Addison Burns this morning and he requested transfer to [facility] for further evaluation and possible revision. - Patient Instructions Diet: Regular Diet as Tolerated Activity: Non Weight Bearing Wound/Incision Care: Keep Operative Site/Wound Site Clean and Dry - Discharge Plan *PRESCRIPTION DRUG MONITORING PROGRAM REVIEWED*: No *COPY OF PRESCRIPTION DRUG MONITORING REPORT IN PATIENT HUGO: No Home Medications: Home Meds Aspirin [Ecotrin EC] 325 mg PO BID 07/05/20 [History] Hydrocodone/Acetaminophen [Hydrocodon-Acetaminophen 5-325] 1 each PO QID 07/05/20 [History] Oxygen Therapy Mode: Room Air Forms: ED Department Discharge Referrals: PCP,None [Primary Care Provider] - - Discharge Summary/Plan Comment DC Time >30 min.: No - Patient Data Vitals - Most Recent: Last Vital Signs Temp 37.1 C 07/06/20 10:33 Pulse 88 07/06/20 10:33 Resp 16 07/06/20 10:33 BP 135/61 07/06/20 10:33 Pulse Ox 96 07/06/20 10:33 Weight - Most Recent: 50.802 kg I&O - Last 24 hours: Intake & Output 07/05/20 07/06/20 07/06/20 22:59 06:59 14:59 Output Total 450 250 650 Balance -450 -250 -650 Lab Results - Last 24 hrs: Laboratory Results - last 24 hr 07/05/20 07/05/20 Range/Units 17:18 17:18 WBC 6.7 (4.5-11.0) K/uL RBC 4.08 (3.30-5.50) M/uL Hgb 11.5 L D (12.0-15.0) g/dL Hct 36.4 (36.0-48.0) % MCV 89 (80-98) fL MCH 28 (27-31) pg MCHC 32 (32-36) % Plt Count 254 (150-400) K/uL Neut % (Auto) 65 (36-66) % Lymph % (Auto) 19 L (24-44) % [place] % (Auto) 14 H (2-6) % Eos % (Auto) 2 (2-4) % Baso % (Auto) 0 (0-1) % Sodium 140 (140-148) mmol/L Potassium 3.7 (3.6-5.2) mmol/L Chloride 103 (100-108) mmol/L Carbon Dioxide 26 (21-32) mmol/L Anion Gap 10.7 (5.0-14.0) mmol/L BUN 12 (7-18) mg/dL Creatinine 0.9 (0.6-1.0) mg/dL Est Cr Clr Drug Dosing 41.78 mL/min Estimated GFR (MDRD) > 60 (>60) Glucose 92 (74-106) mg/dL Calcium 9.2 (8.5-10.1) mg/dL C-Reactive Protein 4.12 H (0.0-0.3) mg/dL Med Orders - Current: Current Medications Docusate Sodium (Colace) 100 mg PO DAILY [facility] Last Admin: 07/06/20 09:08 Dose: 100 mg Documented by: Hydromorphone HCl (Dilaudid) 0.5 mg IVPUSH Q1H PRN PRN Reason: Breakthrough Pain Last Admin: 07/06/20 11:51 Dose: 0.5 mg Documented by: Sodium Chloride (Normal Saline) 1,000 mls @ 75 mls/hr IV ASDIRECTED [facility] Last Admin: 07/06/20 10:14 Dose: 75 mls/hr Documented by: Magnesium Hydroxide (Milk Of Magnesia) 30 ml PO Q6H PRN PRN Reason: Stool Softener Oxycodone HCl (Oxycodone) 10 - 15 mg PO Q4H PRN PRN Reason: Pain (moderate 4-6) Sodium Chloride (Saline Flush) 10 ml FLUSH ASDIRECTED PRN PRN Reason: Keep Vein Open Last Admin: 07/05/20 17:51 Dose: 10 ml Documented by: Discontinued Medications Hydrocodone Bitart/Acetaminophen ([place] 325-10 Mg) 1 tab PO ONETIME ONE Stop: 07/05/20 18:47 Last Admin: 07/05/20 18:56 Dose: 1 tab Documented by: Hydromorphone HCl (Dilaudid) 0.5 mg IVPUSH ONETIME ONE Stop: 07/05/20 17:20 Last Admin: 07/05/20 17:51 Dose: 0.5 mg Documented by: Hydromorphone HCl (Dilaudid) 0.5 mg IVPUSH ONETIME ONE Stop: 07/05/20 19:31 Last Admin: 07/05/20 19:40 Dose: 0.5 mg Documented by: Hydroxyzine HCl (Atarax) 25 mg PO ONETIME ONE Stop: 07/05/20 18:48 Last Admin: 07/05/20 18:56 Dose: 25 mg Documented by: Methocarbamol (Robaxin) 500 mg PO ONETIME ONE Stop: 07/05/20 18:47 Last Admin: 07/05/20 18:56 Dose: 500 mg Documented by: Metoclopramide HCl (Reglan) 5 mg IVPUSH ONETIME ONE Stop: 07/05/20 17:20 Last Admin: 07/05/20 17:50 Dose: 5 mg Documented by:
--- NOTE | 2020-07-06 12:22 | PCM.HP.2 ---
H&P History of Present Illness - General Date of Service: 07/06/20 Admit Problem/Dx: Admission Diagnosis/Problem Admission Diagnosis/Problem Hip pain Source of Information: Patient, Old Records History Limitations: Reports: No Limitations - History of Present Illness Onset of Symptoms: Reports: Sudden Location: Reports: Lower Extremity, Right Quality: Reports: Sharp, Stabbing Severity: Severe Improves with: Reports: Rest Worsens with: Reports: Movement Associated Symptoms: Reports: No Other Symptoms Right Hip Pain Score (Numeric/FACES): 8 - Related Data Allergies/Adverse Reactions: Allergies Allergy/AdvReac Type Severity Reaction Status Date / Time oxycodone Allergy Other Verified 06/07/19 20:58 Home Medications: Home Meds Aspirin [Ecotrin EC] 325 mg PO BID 07/05/20 [History] Hydrocodone/Acetaminophen [Hydrocodon-Acetaminophen 5-325] 1 each PO QID 07/05/20 [History] Past Medical History Cardiovascular History: Reports: Heart Murmur Other Cardiovascular History: Pulmonary stenosis Other Respiratory History: pulmonary stenosis: surgery to open it 1985 Gastrointestinal History: Reports: Cholelithiasis [employer] History: Reports: Musculoskeletal History: Reports: Fracture, Osteoporosis Other Musculoskeletal History: pelvic fracture - Infectious Disease History Infectious Disease History: Reports: Chicken Pox - Past Surgical History HEENT Surgical History: Reports: Tonsillectomy Cardiovascular Surgical History: Reports: Other (See Below) Other Cardiovascular Surgeries/Procedures: pulmonary stenosis surgery GI Surgical History: Reports: Appendectomy, Cholecystectomy Female Surgical History: Reports: Section, Hysterectomy, Oophorectomy, Other (See Below) Other Female Surgeries/Procedures: large cyst removal from ovary 1968. Musculoskeletal Surgical History: Reports: Hip Replacement Social & Family History - Tobacco Use Smoking Status *Q: Never Smoker - Caffeine Use Caffeine Use: Reports: Soda - Recreational Drug Use Recreational Drug Use: No H&P Review of Systems - Review of Systems: Review Of Systems: Comprehensive ROS is negative, except as noted in HPI. General: Reports: No Symptoms Exam - Exam Exam: See Below - Vital Signs Vital Signs: Last Vital Signs Temp 37.1 C 07/06/20 10:33 Pulse 88 07/06/20 10:33 Resp 16 07/06/20 10:33 BP 135/61 07/06/20 10:33 Pulse Ox 96 07/06/20 10:33 Weight: 50.802 kg - Exam General: Alert, Oriented, 4 HEENT: PERRLA, Hearing Intact, Mucosa Moist & [place], Nares Patent, Normal Nasal Septum, Posterior Pharynx Clear, Conjunctiva Clear, EOMI, EACs Clear, TMs Clear Neck: Supple, Trachea Midline, 2 Lungs: Clear to Auscultation, Normal Respiratory Effort Cardiovascular: Regular Rate, Regular Rhythm GI/Abdominal Exam: Normal Bowel Sounds, Soft, Non-Tender, No Organomegaly, No Distention, No Abnormal Bruit, No Mass, Pelvis Stable (Female) Exam: Deferred Rectal (Female) Exam: Deferred Back Exam: Normal Inspection Extremities: Leg Pain, Limited Range of Motion, Other (incision with anahi in place, no sign of infection, pain with passive ROM of hip, mild to moderate swelling) Skin: Warm, Dry Neurological: Cranial Nerves Intact, Reflexes Equal Bilateral Neuro Extensive - Mental Status: Alert, Oriented x3, Normal Mood/Affect, Normal Cognition Neuro Extensive - Motor, Sensory, Reflexes: CN II-XII Intact, Normal Gait, Normal Reflexes Psychiatric: Alert, Normal Affect, Normal Mood - Patient Data Lab Results Last 24 hrs: Laboratory Results - last 24 hr 07/05/20 07/05/20 Range/Units 17:18 17:18 WBC 6.7 (4.5-11.0) K/uL RBC 4.08 (3.30-5.50) M/uL Hgb 11.5 L D (12.0-15.0) g/dL Hct 36.4 (36.0-48.0) % MCV 89 (80-98) fL MCH 28 (27-31) pg MCHC 32 (32-36) % Plt Count 254 (150-400) K/uL Neut % (Auto) 65 (36-66) % Lymph % (Auto) 19 L (24-44) % [place] % (Auto) 14 H (2-6) % Eos % (Auto) 2 (2-4) % Baso % (Auto) 0 (0-1) % Sodium 140 (140-148) mmol/L Potassium 3.7 (3.6-5.2) mmol/L Chloride 103 (100-108) mmol/L Carbon Dioxide 26 (21-32) mmol/L Anion Gap 10.7 (5.0-14.0) mmol/L BUN 12 (7-18) mg/dL Creatinine 0.9 (0.6-1.0) mg/dL Est Cr Clr Drug Dosing 41.78 mL/min Estimated GFR (MDRD) > 60 (>60) Glucose 92 (74-106) mg/dL Calcium 9.2 (8.5-10.1) mg/dL C-Reactive Protein 4.12 H (0.0-0.3) mg/dL Result Diagrams: 07/05/20 17:18 07/05/20 17:18 Sepsis Event Note - Evaluation Sepsis Screening Result: No Definite Risk - Focused Exam Vital Signs: Vital Signs Temp Pulse Resp BP Pulse Ox 07/06/20 10:33 37.1 C 88 16 135/61 96 07/06/20 07:00 37.4 C 110 H 16 142/76 H 96 07/06/20 02:54 36.9 C 91 18 131/65 94 L - Problem List (1) Periprosthetic fracture around internal prosthetic hip joint SNOMED Code(s): 745889442 ICD Code: M97.8XXA - PERIPROSTH FRACTURE AROUND OTHER INTERNAL PROSTH JOINT, INIT; Z96.649 - PRESENCE OF UNSPECIFIED ARTIFICIAL HIP JOINT Status: Acute Current Visit: Yes Qualifiers: Encounter type: initial encounter Laterality: right Qualified Code(s): M97.01XA - Periprosthetic fracture around internal prosthetic right hip joint, initial encounter; T84.040A - Periprosthetic fracture around internal prosthetic right hip joint, initial encounter Problem List Initiated/Reviewed/Updated: Yes Orders Last 24hrs: Active Orders 24 hr Category Date Time Status Patient Status Discharge Transfer [TRANSFER] Urgent ADT 07/06/20 11:56 Ordered Patient Status [ADT] Routine ADT 07/05/20 20:12 Active Antiembolic Devices [RC] .Routine Care 07/05/20 20:14 Active Bedrest [RC] ASDIRECTED Care 07/06/20 09:10 Active Head of Bed Elevation [RC] ASDIRECTED Care 07/05/20 20:12 Active Insert Velasquez Catheter [Insert Urinary Catheter] [OM.PC] Care 07/05/20 20:00 Ordered Q24H Intake and Output [RC] PER UNIT ROUTINE Care 07/05/20 20:12 Active Notify Provider Vital Signs [RC] ASDIRECTED Care 07/05/20 20:12 Active Oxygen Therapy [RC] PRN Care 07/05/20 20:12 Active Peripheral IV Care [RC] . DIRECTED Care 07/05/20 17:18 Active Pneumonia Education [RC] UPON Care 07/05/20 20:12 Active Pulse Oximetry [RC] INTERMITTENT Care 07/05/20 20:12 Active RT Incentive Spirometry [RC] Q1HWA Care 07/05/20 20:12 Active Ready for Discharge [RC] PER UNIT ROUTINE Care 07/06/20 12:00 Ordered Urinary Catheter Assessment [RC] ASDIRECTED Care 07/05/20 19:57 Active VTE/DVT Education [RC] Click to Edit Care 07/05/20 20:14 Active Vital Signs [RC] PER UNIT ROUTINE Care 07/05/20 20:12 Active Consult to Case Management/Assistant Finance Director [CONS] Cons 07/05/20 20:12 Active Routine PT Evaluation and Treatment [CONS] Routine Cons 07/05/20 20:12 Active Regular Diet [DIET] Diet 07/05/20 Dinner Active Docusate Sodium [Colace] Med 07/06/20 09:00 Active 100 mg PO DAILY HYDROmorphone [Dilaudid] Med 07/05/20 20:20 Active 0.5 mg IVPUSH Q1H PRN Magnesium Hydroxide [Milk of Magnesia] Med 07/05/20 20:11 Active 30 ml PO Q6H PRN Sodium Chloride 0.9% [Normal Saline] 1,000 ml Med 07/05/20 20:15 Active IV ASDIRECTED Sodium Chloride 0.9% [Saline Flush] Med 07/05/20 17:18 Active 10 ml FLUSH ASDIRECTED PRN oxyCODONE Med 07/05/20 20:21 Active 10 - 15 mg PO Q4H PRN DME for Inpatients [OM.PC] Routine Oth 07/05/20 20:12 Ordered DVT/VTE Prophylaxis Reflex [OM.PC] Routine Oth 07/05/20 20:12 Ordered Oral Care [OM.PC] Routine Oth 07/05/20 20:12 Ordered Peripheral IV Insertion Adult [OM.PC] Urgent Oth 07/05/20 17:18 Ordered Sequential Compression Device [OM.PC] Routine Oth 07/05/20 20:12 Ordered Resuscitation Status Routine Resus Stat 07/05/20 20:11 Ordered Medication Orders Docusate Sodium (Colace) 100 mg PO DAILY [facility] Last Admin: 07/06/20 09:08 Dose: 100 mg Documented by: RONDA Hydromorphone HCl (Dilaudid) 0.5 mg IVPUSH Q1H PRN PRN Reason: Breakthrough Pain Last Admin: 07/06/20 11:51 Dose: 0.5 mg Documented by: Admin: 07/06/20 10:14 Dose: 0.5 mg Documented by: Admin: 07/06/20 08:57 Dose: 0.5 mg Documented by: Admin: 07/06/20 07:44 Dose: 0.5 mg Documented by: Admin: 07/06/20 02:50 Dose: 0.5 mg Documented by: Admin: 07/05/20 22:46 Dose: 0.5 mg Documented by: KRISHAN Sodium Chloride (Normal Saline) 1,000 mls @ 75 mls/hr IV ASDIRECTED [facility] Last Admin: 07/06/20 10:14 Dose: 75 mls/hr Documented by: RONDA Magnesium Hydroxide (Milk Of Magnesia) 30 ml PO Q6H PRN PRN Reason: Stool Softener Oxycodone HCl (Oxycodone) 10 - 15 mg PO Q4H PRN PRN Reason: Pain (moderate 4-6) Sodium Chloride (Saline Flush) 10 ml FLUSH ASDIRECTED PRN PRN Reason: Keep Vein Open Last Admin: 07/05/20 17:51 Dose: 10 ml Documented by: CARIE Assessment/Plan Comment:: Recent right DEBI with increased pain. X-rays show DEBI with cable around periprosthetic fracture. Femoral stem appears to have subsided. Admit for pain control and bedrest. Will contact operating surgeon and proceed with appropriate treatment from there.
[2020-07-06] MEDS: HYDROmorphone 2 MG Tab PO PRN ×2 (13:06→17:21)
[2020-07-06 14:52] VITALS: BP 125/66; PULSE 95
== END 2020-07-06 18:50 | DRG 561 ==
LOC: JP.ED 17:05 → JP.MS 20:11
PROVIDERS: ADMIT Specialist; ATTEND Specialist
DX: M25.551 Pain in right hip (principal); Z96.641 Presence of right artificial hip joint; M97.01XA Periprosthetic fracture around internal prosthetic right hip joint, initial encounter; Q25.6 Stenosis of pulmonary artery; M81.0 Age-related osteoporosis without current pathological fracture; Z88.5 Allergy status to narcotic agent; Z98.890 Other specified postprocedural states; Z88.6 Allergy status to analgesic agent; Z79.82 Long term (current) use of aspirin; Z79.899 Other long term (current) drug therapy; Z90.49 Acquired absence of other specified parts of digestive tract; Z90.710 Acquired absence of both cervix and uterus
CPT/HCPCS: 36415; 73502 ×2; 80048; 85025; 86140; 93971 ×2; A9270 ×3; J1170 ×2; J2765; 51702; 96374; 96375; 96376; 99285-25; J7030

== ENCOUNTER 2020-10-26 08:10 | Emergency (ER) | payer MEDICARE, BC ==
[2020-10-26 08:25] VITALS: BP 131/65; PULSE 82
[2020-10-26] MEDS ORDERED: Ketorolac 30 MG/ML SDV IM ONE (08:38)
--- NOTE | 2020-10-26 08:39 | EDM.PDOC ---
ED HPI GENERAL MEDICAL PROBLEM - General Chief Complaint: Upper Extremity Injury/Pain Stated Complaint: UPPER RIGHT ARM PAIN Time Seen by Provider: 10/26/20 08:34 Source of Information: Reports: Patient, RN Notes Reviewed History Limitations: Reports: No Limitations - History of Present Illness INITIAL COMMENTS - FREE TEXT/NARRATIVE: 70-year-old female presents emergency department a complaint of right shoulder pain, she injured herself yesterday when she was opening up a pop bottle during the twisting maneuver she heard a large pop now she has significant pain she cannot elevate her shoulder Right Upper Arm Pain Score (Numeric/FACES): 0 - Related Data Allergies Allergy/AdvReac Type Severity Reaction Status Date / Time oxycodone Allergy Other Verified 10/26/20 08:31 Influenza Virus Vaccines AdvReac Hives Verified 10/26/20 08:32 tramadol AdvReac Change Verified 10/26/20 08:32 Mental Status Home Meds: Home Meds Aspirin [Ecotrin EC] 325 mg PO BID 07/05/20 [History] Hydrocodone/Acetaminophen [Hydrocodon-Acetaminophen 5-325] 1 each PO QID 07/05 [History] Past Medical History HEENT History: Reports: Impaired Vision Cardiovascular History: Reports: Heart Murmur Other Cardiovascular History: Pulmonary stenosis Respiratory History: Reports: Other (See Below) Other Respiratory History: pulmonary stenosis: surgery to open it 1985 Gastrointestinal History: Reports: Cholelithiasis 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: Reports: Musculoskeletal History: Reports: Fracture, Osteoporosis Other Musculoskeletal History: pelvic fracture - Infectious Disease History Infectious Disease History: Reports: Chicken Pox - Past Surgical History Head Surgeries/Procedures: Reports: None HEENT Surgical History: Reports: Tonsillectomy Cardiovascular Surgical History: Reports: Other (See Below) Other Cardiovascular Surgeries/Procedures: pulmonary stenosis surgery Respiratory Surgical History: Reports: None GI Surgical History: Reports: Appendectomy, Cholecystectomy Female Surgical History: Reports: Section, Hysterectomy, Oophorectomy, Other (See Below) Other Female Surgeries/Procedures: large cyst removal from ovary 1968. Musculoskeletal Surgical History: Reports: Hip Replacement Social & Family History - Tobacco Use Tobacco Use Status *Q: Never Tobacco User Second Hand Smoke Exposure: No - Caffeine Use Caffeine Use: Reports: None - Recreational Drug Use Recreational Drug Use: No Review of Systems - Review of Systems Review Of Systems: See Below Musculoskeletal: Reports: Shoulder Pain Neurological: Reports: No Symptoms ED EXAM, GENERAL - Physical Exam Exam: See Below Free Text/Narrative:: Examination the right shoulder I do not appreciate any erythema there is no edema there is no deformity noted she is point tender near the insertion of the superior biceps does not tolerate any passive movement with abduction to about 30 degrees complains of pain with flexion and extension as well of the shoulder radial pulses +2 Exam Limited By: No Limitations General Appearance: Alert, WD/WN, No Apparent Distress Course - Vital Signs Last Recorded V/S: Last Vital Signs Temp 99.2 F 10/26/20 08:25 Pulse 82 10/26/20 08:25 Resp 17 10/26/20 08:25 BP 131/65 10/26/20 08:25 Pulse Ox 97 10/26/20 08:25 - Orders/Labs/Meds Meds: Medications Discontinued Medications Generic Name Dose Route Start Last Admin Trade Name Torsten PRN Reason Stop Dose Admin Ketorolac Tromethamine 30 mg 10/26/20 08:38 10/26/20 08:41 Toradol IM 10/26/20 08:39 30 mg ONETIME ONE Administration Departure - Departure Time of Disposition: 09:49 Disposition: Home, Self-Care 01 Condition: Fair Clinical Impression: Right shoulder strain Qualifiers: Encounter type: initial encounter Qualified Code(s): S46.911A - Strain of unspecified muscle, fascia and tendon at shoulder and upper arm level, right arm, initial encounter - Discharge Information Instructions: Shoulder Pain, [id number], Muscle Strain, [id number] Referrals: Ronald Klein MD [Primary Care Provider] - Forms: ED Department Discharge Additional Instructions: Use nonsteroidal anti-inflammatory such as Motrin or naproxen, please followup with your primary care provider in 3-5 days if not better, please call return to the emergency department with worsening of symptoms. Sepsis Event Note (ED) - Evaluation Sepsis Screening Result: No Definite Risk - Focused Exam Vital Signs: Vital Signs Temp Pulse Resp BP Pulse Ox 10/26/20 08:25 99.2 F 82 17 131/65 97 10/26/20 08:23 99.2 F 82 17 131/65 97 - Assessment/Plan Plan: Assessment Acuity = acute Site and laterality = right shoulder strain Etiology = secondary twisting injury Manifestations = none Location of injury = Home Lab values = x-ray reveals no fracture Plan She had good relief with the Toradol injection provided plan to use anti- inflammatories follow-up with primary care if needed physical therapy This note was dictated using [employer] voice recognition software please call with any questions on syntax or grammar.
--- NOTE | 2020-10-26 09:34 | CR ---
Shoulder Comp Rt CLINICAL HISTORY: Pain FINDINGS: There is no acute fracture or dislocation in the right shoulder. There is some periarticular spurring. There is calcification in the biceps tendon region. Impression: Osteoarthritic change Calcific biceps tendinitis
== END 2020-10-26 09:57 | disposition home or self-care (01) ==
LOC: JP.ED 08:10
DX: S46.911A Strain of unspecified muscle, fascia and tendon at shoulder and upper arm level, right arm, initial encounter (principal); Z88.5 Allergy status to narcotic agent; Z88.7 Allergy status to serum and vaccine; Z79.82 Long term (current) use of aspirin; X50.1XXA Overexertion from prolonged static or awkward postures, initial encounter
CPT/HCPCS: 73030; 96372; 99283; J1885

== ENCOUNTER 2021-09-30 09:09 | Emergency (ER) | payer MEDICARE, BC ==
[2021-09-30 09:54] VITALS: BP 130/63; PULSE 78
--- NOTE | 2021-09-30 11:00 | EDM.PDOC ---
ED HPI GENERAL MEDICAL PROBLEM - General Chief Complaint: Lower Extremity Injury/Pain Stated Complaint: KNOT ON BOTTOM OF LEFT LEG , PAIN Time Seen by Provider: 09/30/21 10:45 Source of Information: Reports: Patient, Old Records History Limitations: Reports: No Limitations - History of Present Illness INITIAL COMMENTS - FREE TEXT/NARRATIVE: 70 yo female here with a tender pea sized lump behind her L calf. Has been there for a couple weeks. Saw her provider for it and told her if it got worse to return for recheck. She thinks it might be a little bigger and is questionably m ore tender and found out her provider is gone on vacation so came to the ER. Is on ASA therapy. Recalls no injury to the area. Has no other sx's. 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: Reports: Other (see below) (none) Left Lower Mid-Posterior Leg Pain Score (Numeric/FACES): 6 - Related Data Allergies Allergy/AdvReac Type Severity Reaction Status Date / Time oxycodone Allergy Intermediate Other Verified 09/30/21 09:56 Influenza Virus Vaccines AdvReac Severe Hives Verified 09/30/21 09:57 tramadol AdvReac Intermediate Change Verified 09/30/21 09:57 Mental Status Home Meds: Home Meds Aspirin [Ecotrin EC] 81 mg PO BID 07/05/20 [History] Hydrocodone/Acetaminophen [Hydrocodon-Acetaminophen 5-325] 1 each PO QID 07/05/20 [History] atorvaSTATin [Lipitor] 40 mg PO BEDTIME 09/30/21 [History] Past Medical History HEENT History: Reports: Impaired Vision Cardiovascular History: Reports: Heart Murmur Other Cardiovascular History: Pulmonary stenosis. 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: Musculoskeletal History: Reports: Fracture, Osteoporosis Other Musculoskeletal History: pelvic fracture - Infectious Disease History Infectious Disease History: Reports: Measles, Mumps - Past Surgical History Head Surgeries/Procedures: Reports: None HEENT Surgical History: Reports: Tonsillectomy Cardiovascular Surgical History: Reports: Other (See Below) Other Cardiovascular Surgeries/Procedures: pulmonary stenosis surgery Respiratory Surgical History: Reports: None GI Surgical History: Reports: Appendectomy, Cholecystectomy Female Surgical History: Reports: Section, Hysterectomy, Oophorectomy, Other (See Below) Other Female Surgeries/Procedures: large cyst removal from ovary 1968. Musculoskeletal Surgical History: Reports: Hip Replacement Social & Family History - Tobacco Use Tobacco Use Status *Q: Never Tobacco User - Caffeine Use Caffeine Use: Reports: None - Recreational Drug Use Recreational Drug Use: No Review of Systems - Review of Systems Review Of Systems: See Below Constitutional: Reports: No Symptoms Respiratory: Reports: No Symptoms Cardiovascular: Reports: No Symptoms Musculoskeletal: Reports: Other (L post calf tenderness) Skin: Reports: No Symptoms Neurological: Reports: No Symptoms ED EXAM, GENERAL - Physical Exam Exam: See Below Exam Limited By: No Limitations General Appearance: Alert, WD/WN, No Apparent Distress Extremities: Other (pea sized lump L calf posteriorly with distal ecchymosis starting at lump). No: Pedal Edema, Rodriguez's Sign, Limited Range of Motion, Increased Warmth, Redness Neurological: Alert, Oriented, CN II-XII Intact, Normal Cognition, No Motor/Sensory Deficits Psychiatric: Normal Affect, Normal Mood Skin Exam: Warm, Dry, Intact, No Rash, Ecchymosis (L posterior calf). No: Erythema, Increased Warmth, Lymphangitis, Wound/Incision, Zoster-Like Rash Course - Vital Signs Last Recorded V/S: Last Vital Signs Temp 36.5 C 09/30/21 09:53 Pulse 78 09/30/21 09:53 Resp 15 09/30/21 09:53 BP 130/63 09/30/21 09:53 Pulse Ox 95 09/30/21 09:53 Departure - Departure Time of Disposition: 11:02 Disposition: Home, Self-Care 01 Condition: Good Clinical Impression: Bruise - Discharge Information *PRESCRIPTION DRUG MONITORING PROGRAM REVIEWED*: Not Applicable *COPY OF PRESCRIPTION DRUG MONITORING REPORT IN PATIENT HUGO: Not Applicable Referrals: Ronald Klein MD [Primary Care Provider] - Additional Instructions: Warm compresses, gentle massage. Acetaminophen for pain. F/U with your provider as needed. Sepsis Event Note (ED) - Evaluation Sepsis Screening Result: No Definite Risk - Focused Exam Vital Signs: Vital Signs Temp Pulse Resp BP Pulse Ox 09/30/21 09:53 36.5 C 78 15 130/63 95
== END 2021-09-30 11:15 | disposition home or self-care (01) ==
LOC: JP.ED 09:09
DX: S80.12XA Contusion of left lower leg, initial encounter (principal); Z88.5 Allergy status to narcotic agent; Z88.7 Allergy status to serum and vaccine; Z79.82 Long term (current) use of aspirin; Z79.899 Other long term (current) drug therapy
CPT/HCPCS: 99283

== ENCOUNTER 2021-12-12 20:21 | Emergency (ER) | payer MEDICARE, BC ==
[2021-12-12 20:51] VITALS: BP 144/59; PULSE 94
[2021-12-12] MEDS: Sodium Chloride 0.9% 10 ML Syringe FLUSH PRN (21:12)
[2021-12-12] MEDS: HYDROmorphone 0.5 MG/0.5 ML Syringe IVPUSH ONE (21:12)
[2021-12-12] MEDS: Methocarbamol 500 MG Tab PO ONE (21:50)
[2021-12-12 22:05] LABS: CORONAVIRUS COVID-19 NAA NEGATIVE (NEGATIVE)
== END 2021-12-12 22:03 | disposition home or self-care (01) ==
LOC: JP.ED 20:21
DX: S30.0XXA Contusion of lower back and pelvis, initial encounter (principal); G89.11 Acute pain due to trauma; M79.661 Pain in right lower leg; Z88.5 Allergy status to narcotic agent; Z88.7 Allergy status to serum and vaccine; Z79.82 Long term (current) use of aspirin; Z79.899 Other long term (current) drug therapy; Z20.822 Contact with and (suspected) exposure to COVID-19; W19.XXXA Unspecified fall, initial encounter
CPT/HCPCS: 0241U; 72170; 72170-26; 73552-26-LT; 73552-RT; 96374; 99282; 99283-25; A9270-GY; J1170

== ENCOUNTER 2022-03-05 17:23 | Emergency (ER) | payer MEDICARE, BC ==
[2022-03-05] MEDS ORDERED: Sodium Chloride 0.9% 10 ML Syringe FLUSH PRN (17:25)
[2022-03-05] MEDS ORDERED: Morphine 2 MG/ML SYRINGE IVPUSH ONE ×2 (17:30→18:39)
[2022-03-05] MEDS ORDERED: Sodium Chloride 0.9% 100 ML IV SCH (18:45)
[2022-03-05] MEDS ORDERED: Iopamidol 755 Mg/ML 100 ML Bottle IV SCH (18:45)
[2022-03-05] MEDS ORDERED: diphenhydrAMINE 50 MG/ML SDV IVPUSH ONE (18:58)
[2022-03-05] MEDS ORDERED: diphenhydrAMINE 25 MG Cap PO ONE (18:59)
[2022-03-05 19:59] VITALS: BP 138/72; PULSE 82
[2022-03-05] MEDS ORDERED: Sodium Chloride 0.9% 1,000 ML IV SCH (20:15)
== END 2022-03-05 21:05 | disposition home or self-care (01) ==
LOC: JP.ED 17:23
DX: R07.89 Other chest pain (principal); Z90.49 Acquired absence of other specified parts of digestive tract; Z90.710 Acquired absence of both cervix and uterus; Z79.899 Other long term (current) drug therapy; Z79.82 Long term (current) use of aspirin; Z88.5 Allergy status to narcotic agent; Z88.7 Allergy status to serum and vaccine; Z20.822 Contact with and (suspected) exposure to COVID-19
CPT/HCPCS: 36415; 71045; 71275; 80048; 84484; 85025; 85379; 85610; 85730; 96374; 96375; 96376; 99283; 99285; A9270; J1200; J2270; J3490; Q9967; U0002

== ENCOUNTER 2024-01-31 08:43 | Emergency (ER) | payer MEDICARE, BC ==
[2024-01-31] MEDS: Sodium Chloride 0.9% 10 ML Syringe FLUSH PRN (09:26)
[2024-01-31] MEDS: fentaNYL 100 MCG/2 ML SDV IVPUSH ONE (09:26)
[2024-01-31] MEDS: Sodium Chloride 0.9% 1,000 ML IV SCH (09:27)
[2024-01-31 09:28] LABS: HEMATOCRIT 47.5 % (34.3-46.0); HEMOGLOBIN 16.1 g/dL (11.2-15.5); MEAN CORPUSCULAR HEMOGLOBIN 28.2 pg (31.6-35.5); MEAN CORPUSCULAR HGB CONC 33.9 g/dL (31.6-35.5); MEAN CORPUSCULAR VOLUME 83.3 fL (81.4-99.0); RED BLOOD CELL COUNT 5.7 M/uL (3.77-5.24); WHITE BLOOD CELL COUNT,WBC 5.9 K/uL (3.2-11.0)
[2024-01-31 09:43] LABS: EST CRCL DRUG DOSING (CG) 35.45 mL/min; POTASSIUM,K 3.7 mmol/L (3.6-5.2)
[2024-01-31 09:45] LABS: ANION GAP 11.7 mmol/L (5.0-14.0)
[2024-01-31] MEDS: Sodium Chloride 0.9% 10 ML Syringe FLUSH ONE (09:57)
[2024-01-31] MEDS: Iopamidol 612 MG/ML 100 ML Bottle IV ONE (09:57)
[2024-01-31] MEDS: Sodium Chloride 0.9% 100 ML IV ONE (09:57)
[2024-01-31 10:57] VITALS: BP 124/64; PULSE 77
== END 2024-01-31 11:29 | disposition home or self-care (01) ==
LOC: JP.ED 08:43
DX: R07.89 Other chest pain (principal); S50.11XA Contusion of right forearm, initial encounter; I25.10 Atherosclerotic heart disease of native coronary artery without angina pectoris; I25.2 Old myocardial infarction; Z88.5 Allergy status to narcotic agent; Z88.7 Allergy status to serum and vaccine; Z88.6 Allergy status to analgesic agent; Z79.82 Long term (current) use of aspirin; Z79.899 Other long term (current) drug therapy; Z86.19 Personal history of other infectious and parasitic diseases; Z90.49 Acquired absence of other specified parts of digestive tract; W19.XXXA Unspecified fall, initial encounter
CPT/HCPCS: 36415; 71260; 80048; 85027; 96374; 99284; J3010; J3490; J7030; Q9967; 99283

== ENCOUNTER 2024-07-19 23:41 | Emergency (ER) | payer MEDICARE, BC ==
[2024-07-20] MEDS: Diphtheria,Pertussis(Acell),Tetanus Vaccine 0.5 ML Syringe IM ONE (00:05)
[2024-07-20] MEDS: fentaNYL 100 MCG/2 ML SDV IM ONE (00:05)
[2024-07-20] MEDS: Lidocaine 1% with EPINEPHrine 1:100,000 50 ML MDV SUBCUT STA (00:08)
[2024-07-20] MEDS: Bacitracin Oint 1 GM U/D Packet TOP ONE (00:08)
[2024-07-20 07:25] VITALS: BP 122/66; PULSE 77
== END 2024-07-20 07:25 | disposition home or self-care (01) ==
LOC: JP.ED 23:41
DX: S51.011A Laceration without foreign body of right elbow, initial encounter (principal); S70.01XA Contusion of right hip, initial encounter; S40.011A Contusion of right shoulder, initial encounter; I25.10 Atherosclerotic heart disease of native coronary artery without angina pectoris; I25.2 Old myocardial infarction; Z79.82 Long term (current) use of aspirin; Z79.899 Other long term (current) drug therapy; Z88.5 Allergy status to narcotic agent; Z88.7 Allergy status to serum and vaccine; Z91.041 Radiographic dye allergy status; W18.30XA Fall on same level, unspecified, initial encounter
CPT/HCPCS: 12002; 73030; 73502; 90471; 90715; 96372; 99283; J3010